=== PATIENT | male | born 1975 | race Caucasian/White ===

== ENCOUNTER → 2019-10-21 16:21 | Outpatient (CLI) | payer BC, SELFPAY ==
--- NOTE | ~2019-10-21 | XR_ITS ---
EXAMINATION: XR lumbar spine min 4V EXAM DATE: 10/21/2019 16:54 INDICATION: Low back pain for 5 months. Right leg pain. TECHNIQUE: Lumber spine frontal, lateral, bilateral oblique projections. Coned down frontal and lat eral L5-S1 lumbar projections for interpretation. There is no prior study for comparison. FINDINGS: There is mild to moderate disc disease at L2-3 and L4-5, mild at the other lumbar levels. T here is mild upper lumbar, mild to moderate lower lumbar facet arthropathy. The vertebral bodies are aligned in the AP dimension. No spondylolysis. Sacrum, sacroiliac joints, sacral arcuate lines are in tact. Paraspinal soft tissue is unremarkable. IMPRESSION: Mild to moderate lumbar spondylosis. Reviewed, dictated and finalized at location A.
== END ==
PROVIDERS: PCP Chiropractor; Visit Provider Chiropractor
DX: M99.03 Segmental and somatic dysfunction of lumbar region (principal); M99.04 Segmental and somatic dysfunction of sacral region; M99.05 Segmental and somatic dysfunction of pelvic region; M47.896 Other spondylosis, lumbar region
CPT/HCPCS: 72110

== ENCOUNTER → 2021-02-27 00:46 | Outpatient (CLI) | payer OTHER, SELFPAY ==
[2021-03-01 19:55] LABS: SARS-CoV-2 RNA PCR Negative
== END ==
PROVIDERS: PCP Family Medicine Adolescent Medicine; Visit Provider Physician Assistant
DX: Z20.822 Contact with and (suspected) exposure to COVID-19 (principal)
CPT/HCPCS: C9803; U0003; U0005